=== PATIENT | female | born 1970 ===

== ENCOUNTER 2020-07-22 08:33 | Day surgery (SDC) | payer BC ==
[~2020-07-22 08:33] MED LIST: Lactated Ringers 1,000 ML IV SCH
[2020-07-22] MEDS ORDERED: fentaNYL 100 MCG/2 ML SDV ONE (09:53)
[2020-07-22] MEDS ORDERED: Midazolam 1 MG/ML 2 ML SDV ONE (09:53)
[2020-07-22] MEDS ORDERED: Ondansetron 4 MG/2 ML SDV ONE (09:53)
[2020-07-22] MEDS ORDERED: Propofol 200 MG/20 ML SDV ONE ×3 (09:53→11:25)
--- NOTE | 2020-07-22 10:40 | PCM.PREANE ---
Preanesthetic Assessment - Anesthesia/Transfusion/Family Hx Anesthesia History: Prior Anesthesia Without Reaction Family History of Anesthesia Reaction: No Transfusion History: No Prior Transfusion(s) - Review of Systems General: No Symptoms Pulmonary: No Symptoms Cardiovascular: No Symptoms Gastrointestinal: No Symptoms Neurological: No Symptoms Other: Reports: None - Physical Assessment NPO Status Date: 07/22/20 NPO Status Time: 00:05 Vital Signs: Last Vital Signs Temp 97.3 F 07/22/20 10:31 Pulse 78 07/22/20 10:31 Resp 16 07/22/20 10:31 BP 136/72 07/22/20 10:31 Pulse Ox 95 07/22/20 10:31 Height: 5 ft 7 in Weight: 267 lb ASA Class: 3 (fd) Mental Status: Alert & Oriented x3 Airway Class: Mallampati = 2 Dentition: Reports: Normal Dentition ROM/Head Extension: Limited/Partial Lungs: Clear to Auscultation Cardiovascular: Regular Rate - Lab Values: Laboratory Last Values Urine HCG, Qual NEGATIVE (NEGATIVE) 07/22/20 08:45 - Allergies Allergies/Adverse Reactions: Allergies Allergy/AdvReac Type Severity Reaction Status Date / Time Penicillins Allergy Swelling Verified 07/22/20 10:30 Sulfa (Sulfonamide Allergy Itching Verified 07/22/20 10:30 Antibiotics) - Anesthesia Plan Pre-Op Medication Ordered: None - Acknowledgements Anesthesia Type Planned: General Anesthesia Pt an Appropriate Candidate for the Planned Anesthesia: Yes Alternatives and Risks of Anesthesia Discussed w Pt/Guardian: Yes Pt/Guardian Understands and Agrees with Anesthesia Plan: Yes Additional Comments: npo aodm tob none etoh rare morbid obesity par no questions PreAnesthesia Questionnaire HEENT History: Reports: Other (See Below) Other HEENT History: reading glasses Cardiovascular History: Reports: None Respiratory History: Reports: None Gastrointestinal History: Reports: None Genitourinary History: Reports: None BOTTOM LINER History: Reports: Musculoskeletal History: Reports: None Neurological History: Reports: None Psychiatric History: Reports: None Endocrine/Metabolic History: Reports: Diabetes, Type II, Hypothyroidism, Obesity/BMI 30+ Other Endocrine/Metabolic History: hypothyroid in the past, no longer on medication Hematologic History: Reports: None Immunologic History: Reports: None Oncologic (Cancer) History: Reports: None Dermatologic History: Reports: None - Past Surgical History Head Surgeries/Procedures: Reports: None HEENT Surgical History: Reports: Oral Surgery Other HEENT Surgeries/Procedures: wisdom teeth extraction Cardiovascular Surgical History: Reports: None Respiratory Surgical History: Reports: None GI Surgical History: Reports: None Female Surgical History: Reports: Section Endocrine Surgical History: Reports: None Neurological Surgical History: Reports: None Musculoskeletal Surgical History: Reports: None Oncologic Surgical History: Reports: None Dermatological Surgical History: Reports: None - SUBSTANCE USE Tobacco Use Status *Q: Never Tobacco User - HOME MEDS Home Medications: Home Meds metFORMIN HCl [Metformin HCl ER] 1,000 mg PO BEDTIME 06/19/20 [History] metFORMIN HCl [Metformin HCl] 500 mg PO ACBREAKFAST 06/19/20 [History] - CURRENT (IN HOUSE) MEDS Current Meds: Current Medications Lactated Ringer's (Ringers, Lactated) 1,000 mls @ 125 mls/hr IV ASDIRECTED [facility] Last Admin: 07/22/20 09:18 Dose: 125 mls/hr Documented by: Discontinued Medications Fentanyl (Fentanyl 100 Mcg/2 Ml Sdv) Confirm Administered Dose 100 mcg .ROUTE .STK-MED ONE Stop: 07/22/20 09:54 Midazolam HCl (Midazolam 1 Mg/Ml 2 Ml Sdv) Confirm Administered Dose 2 mg .ROUTE .STK-MED ONE Stop: 07/22/20 09:54 Ondansetron HCl (Ondansetron 4 Mg/2 Ml Sdv) Confirm Administered Dose 4 mg .ROUTE .STK-MED ONE Stop: 07/22/20 09:54 Propofol (Propofol 200 Mg/20 Ml Sdv) Confirm Administered Dose 200 mg .ROUTE .STK-MED ONE Stop: 07/22/20 09:54
--- NOTE | 2020-07-22 11:52 | PCM.OPNOTE ---
- General Post-Op/Procedure Note Date of Surgery/Procedure: 07/22/20 Operative Procedure(s): colonoscopy with polypectomy Findings: marginal bowel prep diverticulosis Colon polyps dictation number [id number] Pre Op Diagnosis: screening colonoscopy Post-Op Diagnosis: marginal bowel prep. diverticulosis. Colon polyps Primary Surgeon: Lukas David Pathology: colon polyps Complications: None Condition: Good
--- NOTE | 2020-07-22 12:57 | PCM.POSTAN ---
POST ANESTHESIA ASSESSMENT - MENTAL STATUS Mental Status: Alert, Oriented - VITAL SIGNS Vital Signs: Last Vital Signs Temp 97.3 F 07/22/20 10:31 Pulse 58 L 07/22/20 11:59 Resp 15 07/22/20 11:59 BP 120/72 07/22/20 11:59 Pulse Ox 97 07/22/20 11:59 - RESPIRATORY Respiratory Status: Respiratory Rate WNL, Airway Patent, O2 Saturation Stable - CARDIOVASCULAR CV Status: Pulse Rate WNL, Blood Pressure Stable - GASTROINTESTINAL GI Status: No Symptoms - POST OP HYDRATION Hydration Status: Adequate & Stable
--- NOTE | 2020-07-22 12:58 | PCM48HPAN ---
Post Anesthesia Note - EVALUATION WITHIN 48HRS OF ANESTHETIC Vital Signs in Normal Range: Yes Patient Participated in Evaluation: Yes Respiratory Function Stable: Yes Airway Patent: Yes Cardiovascular Function Stable: Yes Hydration Status Stable: Yes Pain Control Satisfactory: Yes Nausea and Vomiting Control Satisfactory: Yes Mental Status Recovered: Yes Vital Signs: Last Vital Signs Temp 97.3 F 07/22/20 10:31 Pulse 58 L 07/22/20 11:59 Resp 15 07/22/20 11:59 BP 120/72 07/22/20 11:59 Pulse Ox 97 07/22/20 11:59
--- NOTE | 2020-07-22 15:31 | OR ---
SURGEON: JOSE ANDRES MD DATE OF PROCEDURE: 07/22/2020 PREOPERATIVE DIAGNOSIS: Screening colonoscopy. POSTOPERATIVE DIAGNOSES: 1. Diverticulosis. 2. Colon polyps x2. 3. Marginal bowel prep. PROCEDURES PERFORMED: 1. Colonoscopy. 2. Hot snare polypectomies. PRIMARY SURGEON: Jose Andres MD ANESTHESIA: With anesthesiologist. EXTENT OF THE COLONOSCOPY: To the cecum and terminal ileum. WITHDRAWAL TIME: 26 minutes. LIMITATION: The patient had a fairly poor bowel prep. With a lot of suction and irrigation, I did get up to a somewhat marginal one, although a small polyp could have been missed. REASON FOR PROCEDURE: The patient is a pleasant 50-year-old female. This will be her first colonoscopy. She denies any blood in her stool. She does have an uncle who had colorectal cancer. DESCRIPTION OF PROCEDURE: A detailed physical exam was performed. The major risks and benefits associated with the procedure were explained to the patient in detail. The patient verbalized understanding of the same. The patient was then connected to appropriate monitoring device and IV started. EKG, pulse, pulse oximetry, blood pressure, and capnography were monitored throughout the procedure. Continuous oxygen and sedation were provided by the anesthesiologist. The patient was placed in left lateral decubitus position and sedation began. After adequate sedation was achieved, digital rectal exam was performed. No rectal masses or polyps were felt. Now, a well-lubricated Olympus colonoscope was entered in the rectum and advanced under direct visualization to the level of the cecum. The patient had quite a bit of liquid stool. This was suctioned and irrigated out. Slightly on the way in, I did reach the cecum. Cecum was identified by both visual and anatomic landmarks. I did spend some time suctioning and irrigating out the cecum. The patient had what looked like some amount of organic material that remained, but all appeared free of mucosa. The terminal ileum was also intubated. The scope was then slowly withdrawn in somewhat circular fashion looking at the color, texture, anatomy, and integrity of the mucosa from the cecum to the anal canal. The patient did have a polyp at about 120 cm in the ascending colon just distal to the ileocecal valve. This was removed with hot snare polypectomy. I did use a Resolution clip to close the mucosal defect. Scope was slowly withdrawn again. The patient did have liquid stool. This was suctioned and irrigated out for okay looks of the mucosa, but again a little bit of debris was left and a small polyp could have been missed. The patient did have some scant diverticulosis of the sigmoid colon. The patient had another polyp at about 10 cm. This was also removed with hot snare polypectomy. There was good hemostasis. Scope was retroflexed in the rectum. Scope was completely removed and procedure was terminated. ENDOSCOPIC DIAGNOSES: 1. Marginal bowel prep. 2. Diverticulosis. 3. Colon polyps x2. RECOMMENDATION: Followup colonoscopy will depend on pathology, but most likely she will need another one in about a year because of the marginal bowel prep, family history, and having polyps. The patient to follow up in clinic. SHANDA DONNELLY /[id number]
== END 2020-07-22 12:40 | disposition home or self-care (01) ==
LOC: MW.SDS 08:33
PROVIDERS: ATTEND Surgery
DX: Z12.11 Encounter for screening for malignant neoplasm of colon (principal); D12.2 Benign neoplasm of ascending colon; D12.8 Benign neoplasm of rectum; K57.30 Diverticulosis of large intestine without perforation or abscess without bleeding; E11.9 Type 2 diabetes mellitus without complications; E03.9 Hypothyroidism, unspecified; E66.9 Obesity, unspecified; Z80.0 Family history of malignant neoplasm of digestive organs; Z88.0 Allergy status to penicillin; Z88.2 Allergy status to sulfonamides; Z79.84 Long term (current) use of oral hypoglycemic drugs; Z98.890 Other specified postprocedural states; Z68.41 Body mass index [BMI] 40.0-44.9, adult
CPT/HCPCS: 45385; 81025; 82962; J2250; J2405; J2704; J3010; J7120; 00812